=== PATIENT | female | born 1955 | race Caucasian/White ===

== ENCOUNTER 2025-03-30 19:38 | Emergency (ER) | payer MEDICARE, OTHER ==
[~2025-03-30] VITALS: Ht 170.2 cm; Wt 71.2 kg
[2025-03-30 20:07] LABS: PLATELET COUNT (AUTO) 246 K/uL (150-450); RED BLOOD CELL COUNT(AUTO) 4.02 MIL/uL (4.0-5.2); RED CELL DISTRIBUTION WIDTH 14.0 % (11.5-15.0); WHITE BLOOD COUNT (AUTO) 12.8 K/uL (4.3-11.0)
[2025-03-30 20:12] LABS: CALCIUM, SERUM 12.0 mg/dL (8.5-10.1); CREATININE 1.5 mg/dL (0.6-1.3); SODIUM SERUM 140.0 mmol/L (136-145); UREA NITROGEN, BLOOD 26.0 mg/dL (7-18)
[2025-03-30 20:25] LABS: NT-PRO BNP 292.0 pg/mL (0-125)
[2025-03-30] MEDS ORDERED: LEVO750T46 PO (22:08)
[2025-03-30 23:44] VITALS: BP 119/50; TEMP 98.1; O2SAT 100
== END 2025-03-30 23:44 | disposition home or self-care (01) ==
LOC: ER 19:47
DX: M79.602 Pain in left arm (principal); R06.02 Shortness of breath; J44.9 Chronic obstructive pulmonary disease, unspecified; F32.A Depression, unspecified; Z85.118 Personal history of other malignant neoplasm of bronchus and lung; Z88.5 Allergy status to narcotic agent
CPT/HCPCS: 36415; 71045-TC; 73060-TC; 73090-TC; 73130-TC; 80048-TC; 83880; 84484-TC; 85025-TC